=== PATIENT | male | born 1935 | race Caucasian/White ===

== ENCOUNTER 2018-03-23 11:00 | Day surgery (SDC) | payer OTHER ==
[~2018-03-23] VITALS: Ht 180.3 cm; Wt 127.0 kg
[~2018-03-23 11:00] MED LIST: ACID REDUCER 1150 MG PO; ALEVE220 MG PO; ALLOPURINOL300 MG PO; ASPIR 8181 M1 PO; CLOPIDOGREL75 MG PO; ENDOCET 5-3251 EACH PO; FISH OIL 1,0001 EAC7 PO; FUROSEMIDE40 MG PO; METOPROLOL SUCC25 MG PO; NITROSTAT0.4 MG SL; PANTOPRAZOLE SO40 MG PO; PRILOSEC OTC20 MG PO; SIMVASTATIN80 MG PO; TYLENOL WITH C1 EACH PO
== END 2018-03-23 11:32 | disposition home or self-care (01) ==
LOC: PAIN 11:00 → SDC 11:30 → PAIN 11:30
DX: M47.816 Spondylosis without myelopathy or radiculopathy, lumbar region (principal); M48.061 Spinal stenosis, lumbar region without neurogenic claudication; M54.16 Radiculopathy, lumbar region; M51.36 Other intervertebral disc degeneration, lumbar region; Z87.891 Personal history of nicotine dependence
CPT/HCPCS: J1030; J2250; S0020